=== PATIENT | female | born 1970 | race African-American/Black ===

== ENCOUNTER 2019-02-05 15:00 | Emergency (ER) | payer OTHER ==
[~2019-02-05] VITALS: Ht 175.3 cm; Wt 86.2 kg
[~2019-02-05 15:00] MED LIST: AMITRIPTYLINE H25 M3 PO; NORCO 5-325 TA1 EACH PO; ONDANSETRON HCL4 M2 PO; PREVACID 30MG C30 M1 PO; SPACERADULT; VICODIN 5-5001 EACH PO; ZEGERID 40 MG1 EACH PO
[2019-02-05 15:50] LABS: ABSOLUTE NEUTROPHILS 4.1 thou/uL (1.4-8.2); EOSINOPHILS 1.6 % (0.0-3.0); HEMATOCRIT 37.6 % (37.0-47.0); HEMOGLOBIN 12.7 gm/dL (12.0-15.0); LYMPHOCYTES 20.9 % (24.0-44.0); MCH 28.8 pg (26.0-34.0); MCHC 33.8 g/dL (28.0-37.0); MCV 85.3 fL (80.0-100.0); MONOCYTES 6.1 % (1.0-8.0); PLATELET COUNT 241 thou/uL (150-400); POLYS 70.4 % (36.0-66.0); RBC 4.41 mil/uL (4.20-5.00); RDW 12.9 % (10.5-14.5); WBC 5.8 thou/uL (4.0-11.0)
[2019-02-05 15:57] LABS: ANION GAP 9 mmol/L (7-16); BUN 10 mg/dL (7-18); CALCIUM 9.5 mg/dL (8.5-10.1); CHLORIDE 101 mmol/L (98-107); CO2 26 mmol/L (21-32); CREATININE 0.9 mg/dL (0.6-1.0); GLUCOSE 99 mg/dL (74-106); POTASSIUM 4.2 mmol/L (3.5-5.1); SODIUM 136 mmol/L (136-145)
[2019-02-05 16:07] LABS: ALBUMIN 3.9 g/dL (3.4-5.0); SGOT 25 U/L (15-37); SGPT 22 U/L (30-65); TOTAL BILIRUBIN 0.4 mg/dL (<0.1-1.0); TOTAL PROTEIN 7.7 g/dL (6.4-8.2); TROPONIN-I <0.06 ng/mL (<0.06)
[2019-02-05] MEDS ORDERED: NAPROSYN500 MG PO (16:18)
[2019-02-05 16:36] VITALS: BP 123/59
--- NOTE | 2019-02-06 09:13 | EKG ---
[address] [address] ELECTROCARDIOGRAM REPORT Name: DEBBY PANDA [id number] Admission: 02/05/19 Attend Phys: Discharge: 02/05/19 Date of : 66 Report #: [id number] THIS REPORT FOR: //name// [facility] ED Test Date: 2019-02-05 Test Time: 15:01:56 Pat Name: DEBBY PANDA Department: Room: Gender: F [employer]: HIPOLITO : 1970 Requested By: Deya Mcadams Order Number: [id number] MD: Asad Zamora Measurements Intervals [place] Rate: 71 P: 71 HI: 144 QRS: 59 QRSD: 83 T: 42 QT: 375 QTc: 408 Interpretive Statements Sinus rhythm Probable left atrial enlargement Compared to ECG 07/29/2009 11:19:43 No significant changes Electronically Signed On 02-06-2019 9:13:13 CDT by Asad Zamora [email or web address] <ELECTRONICALLY SIGNED> By: Asad Zamora MD 02/06/19912 1501 1501 MD KJ Go
== END 2019-02-05 16:40 | disposition home or self-care (01) ==
LOC: ER 15:00
PROVIDERS: Physician Assistant
DX: R07.89 Other chest pain (principal); Z90.49 Acquired absence of other specified parts of digestive tract; Z88.1 Allergy status to other antibiotic agents; Z91.018 Allergy to other foods